=== PATIENT | male | born 1975 | race Two or more races ===

== ENCOUNTER 2025-06-17 08:41 | Inpatient (IN) | payer MEDICAID ==
[~2025-06-17] VITALS: Ht 180.3 cm; Wt 83.5 kg
--- NOTE | 2025-06-17 09:27 | ED.PDOC ---
History of Present Illness HPI Comments Patient is a 50-year-old male with past medical history of CVA/TIA? Four years ago without any residual deficits, hypertension, dyslipidemia, diabetes who comes in due to headache. According to the patient, he has been experiencing headache for the last 2 weeks, 7/10 intensity, constant and associated with i ntermittent blurry vision. Notes he had a similar headache before his stroke 4 years ago which is what prompted this visit to the ER. On review of systems patient is complaining of shortness of breaths, headache. Past medical history: CVA/TIA? Four years ago without any residual deficits, hypertension, dyslipidemia, diabetes Past surgical history: Denies Home medications: Losartan, aspirin, ibuprofen PRN Social & Personal history: Denies smoking, alcohol, drugs. Lives at home with family. Allergies: Denies Patient seen and examined at bedside. Patient is alert and oriented to time, place person and responding to all questions. Eyes: No Pain, Vision change, No Conjunctivae inflammation, No Eyelid inflammation, No Other, No Redness ENT: No Ear pain, No Ear discharge, No Nose pain, No Nose discharge, No Nose congestion, No Mouth pain, No Mouth swelling, No Throat pain, No Throat swelling, No Other Cardiovascular: No Chest Pain, No Palpitations, No Orthopnea, No Paroxysmal No Dyspnea, No Edema, No Lt Headedness, No Other Respiratory: No Cough, No Dry, Shortness of breath, No SOB with exertion, No Wheezing, No Hemoptysis, No Pleuritic Pain, No Sputum, No Other Gastrointestinal: No Nausea, No Vomiting, No Abdominal Pain, No Diarrhea, No Constipation, No Melena, No Hematochezia, No Other Genitourinary: No Dysuria, No Frequency, No Incontinence, No Hematuria, No Retention, No Other Musculoskeletal: No other, No neck pain, No shoulder pain, No arm pain, No back pain, No hand pain, No leg pain, No foot pain Skin: No Rash, No Lesions, No Jaundice, No Bruising, No Other Chief Complaint: Headache Time Seen by MD: 09:00 Primary Care Provider: NONE Allergies: Coded Allergies: NO KNOWN ALLERGIES (Unverified , 06/17/25) Information Source: Patient Mode of Arrival: Ambulatory Severity: Moderate Timing: Weeks Prehospital treatment: Pain Meds Past Medical History PAST MEDICAL HISTORY: Denies Surgical History: Denies all surgeries Family History Family History: No family hx of Cancer Social History Smoker: Non-Smoker Alcohol: Denies ETOH Use Drugs: Denies Drug Use Lives In: Home Physical Exam General Appearance: No Apparent Distress HEENT: Normal ENT Inspection, PERRL/EOMI Neck: Full Range of Motion, Non-Tender, Normal, Normal Inspection Respiratory: Chest Non-Tender, Lungs Clear, No Accessory Muscle Use, No Respiratory Distress, Normal Breath Sounds Cardiovascular: No Edema, No Murmur, Regular Rate/Rhythm Breast Exam: Deferred Gastrointestinal: Non Tender, No Pulsatile Mass, Normal Bowel Sounds Genitalia: Deferred Pelvic: Deferred Rectal: Rectal Exam not done Extremities: No calf tenderness, Normal capillary refill, Normal inspection, Normal range of motion, Non-tender, No pedal edema Neurologic: Alert, bending frame operator II-XII nml as Tested, Headache, No Motor Deficits, Normal Affect, Normal Mood, No Sensory Deficits Cerebellar Function: Normal Reflexes: Normal Skin: Dry, None, Normal Color, Warm Peripheral Pulses: 2+ dorsalis pedis (R), 2+ dorsalis pedis (L) Lymphatic: NOT DONE Was a procedure done? Was a procedure done?: No Differential Dx Considerations may include: Hypertensive urgency Hypertensive emergency Medication overuse headache TIA X-Ray, Labs, Meds, VS Vital Signs Date Time Temp Pulse Resp B/P (MAP) Pulse Ox O2 Delivery O2 Flow Rate FiO2 06/17/25 10:13 98 Room Air* 0 21 06/17/25 09:59 98.1 64 17 155/113 (127) 95 98.1 06/17/25 08:42 98.3 65 16 184/107 95 98.3 Lab Test 06/17/25 10:12 06/17/25 09:36 Range/Units Troponin I High Sensitivity Pending 5 </=54 ng/L White Blood Count 6.5 4.4-10.8 10^3/uL Red Blood Count 5.34 4.5-5.90 10^6/uL Hemoglobin 16.5 13.5-17.5 g/dL Hematocrit 48.3 41.0-53.0 % Mean Corpuscular Volume 90.5 80.0-100.0 fL Mean Corpuscular Hemoglobin 30.8 28.0-32.0 pg Mean Corpuscular Hemoglobin Concent 34.0 32.0-36.0 g/dL Red Cell Distribution Width 13.5 11.8-14.3 % Platelet Count 184 140-450 10^3/uL Mean Platelet Volume 8.5 6.9-10.8 fL Neutrophils (%) (Auto) 58.5 37.0-80.0 % Lymphocytes (%) (Auto) 33.1 10.0-50.0 % Monocytes (%) (Auto) 6.3 0.0-12.0 % Eosinophils (%) (Auto) 1.6 0.0-7.0 % Basophils (%) (Auto) 0.5 0.0-2.0 % Neutrophils # (Auto) 3.8 1.6-8.6 10 ^3/uL Lymphocytes # (Auto) 2.2 0.4-5.4 10 ^3/uL Monocytes # (Auto) 0.4 0-1.3 10 ^3/uL Eosinophils # (Auto) 0.1 0-0.8 10 ^3/uL Basophils # (Auto) 0 0-0.2 10 ^3/uL Nucleated Red Blood Cells 0.1 % Sodium Level 142 136-145 mmol/L Potassium Level 4.5 3.5-5.1 mmol/L Chloride Level 105 98-107 mmol/L Carbon Dioxide Level 29 20-31 mmol/L Anion Gap 8 5-15 Blood Urea Nitrogen 10 9-23 mg/dL Creatinine 0.93 0.700-1.30 mg/dL Glomerular Filtration Rate Calc 99 >90 mL/min BUN/Creatinine Ratio 10.8 10.0-20.0 Serum Glucose 93 74-106 mg/dL Calcium Level 9.9 8.7-10.4 mg/dL Time of 1ST Reevaluation: 10:15 Reevaluation 1ST: Unchanged Patient Education/Counseling: Diagnosis, Treatment, Prognosis, Need For Follow Up Family Education/Counseling: No Family Present SEPSIS Sepsis Screen Date sepsis recognized/suspect: Jun 17, 2025 Time Sepsis recognized/suspect: 08 Recent Procedure: No On Antibiotic Therapy: No Respiratory Rate >20: No Heart Rate >90: No Temp<36 C (96.8 F) or >38.3 C: No SBP <90 or MAP <65 mmHG: No New Acute Mental Status Change: No Is the patient on CPAP, BIPAP,: No Physician Orders Head Without Contrast (06/17/25 09:18) Electrocardigram (06/17/25 09:18) Troponin-I Hs (06/17/25 10:18) Troponin-I Hs (06/17/25 12:18) Chest Two Views Routine (06/17/25 09:18) Vital Signs Date Time Temp Pulse Resp B/P (MAP) Pulse Ox O2 Delivery O2 Flow Rate FiO2 06/17/25 10:13 98 Room Air* 0 21 06/17/25 09:59 98.1 64 17 155/113 (127) 95 98.1 06/17/25 08:42 98.3 65 16 184/107 95 98.3 Laboratory Tests Test 06/17/25 09:36 White Blood Count 6.5 10^3/uL (4.4-10.8) Departure 1 Departure Time of Disposition: 10:25 Impression: Primary Impression: Hypertensive emergency Additional Impression: Vision blurred Disposition: ADMITTED INPATIENT Admit to: Med Surg Condition: Guarded Comments Patient noted to have an extensive old infarct on head CT, together with accelerated hypertension and persistent headache, patient will benefit from inpatient hospitalization for further evaluation and management. Patient was given IV hydralazine 10 mg once in the ER with some improvement. Critical Care Note Critical Care Time?: No Stability Stability form required: LYSSA Rose RESIDENT Jun 17, 2025 09:27
[2025-06-17] MEDS: hydrALAZINE HCL 20 MG/ML VL IV ONE (09:30)
[2025-06-17 09:45] LABS: Hematocrit 48.3 % (41.0-53.0); Hemoglobin 16.5 g/dL (13.5-17.5); Mean Corpuscular Hemoglobin 30.8 pg (28.0-32.0); Mean Corpuscular Volume 90.5 fL (80.0-100.0); Nucleated Red Blood Cells % 0.1 %
[2025-06-17 09:52] LABS: Chloride 105 mmol/L (98-107); Potassium 4.5 mmol/L (3.5-5.1); Sodium 142 mmol/L (136-145)
--- NOTE | 2025-06-17 09:52 | DVH ---
EXAM: XY CHEST TWO VIEWS ROUTINE HISTORY: son, htn urgency vs emergency COMPARISON: None TECHNIQUE: Frontal and lateral views of the chest were performed. FINDINGS: There is interstitial scarring in the right mid to lower lung and left lung base. No other infiltrates, pneumothorax, pulmonary edema, or pleural effusions. There are calcified granulomas in both lungs. The lungs are hyperexpanded with flattening of the diaphragm on the lateral film. The heart is not enlarged. There are multiple old bilateral rib fractures. There is thoracic degenerative disc disease. IMPRESSION: 1. No acute intrathoracic process. 2. Scarring in the right mid to lower lung and left lung base. 3. Pulmonary hyperexpansion which may indicate Emphysema.
[2025-06-17 09:53] LABS: Anion Gap 8 (5-15); Calcium 9.9 mg/dL (8.7-10.4); Carbon Dioxide 29 mmol/L (20-31)
[2025-06-17 09:58] LABS: BUN/Creatinine Ratio 10.8 (10.0-20.0); Blood Urea Nitrogen 10 mg/dL (9-23); Glucose 93 mg/dL (74-106)
--- NOTE | 2025-06-17 09:58 | DVH ---
CLINICAL HISTORY: Hypertensive urgency versus emergency, headache TECHNIQUE: Helical scanning was performed of the head from the skull base to the vertex. Multiplanar reconstructions were performed. This exam was performed according to our departmental dose optimization program. Up-to-date CT equipment and radiation dose reduction techniques are utilized as appropriate. CTDI 55 DLP 991 COMPARISON: None FINDINGS: There is no evidence for acute intracranial hemorrhage, acute ischemic changes, mass, mass effect, or extra-axial fluid collection. There is no hydrocephalus or midline shift. There is no effacement of the cerebral sulci and basal subarachnoid cisterns. The kent-white matter differentiation is well maintained. There is a small to moderate Old Left occipital and posteromedial temporal lobe infarct. There is a moderate old left cerebellar infarct. There is a small old right parietal lobe infarct. The imaged paranasal sinuses demonstrates a nearly completely opacified left frontal sinus. IMPRESSION: No acute intracranial abnormality seen. Nearly completely opacified left frontal sinus. Old right parietal, left occipital temporal, and left cerebellar infarcts.
--- NOTE | 2025-06-17 11:13 | DVHHP2 ---
History of Present Illness History of Present Illness This is a 48-year-old male with past medical history of ischemic stroke four years ago, hypertension, dyslipidemia, and diabetes. He reports two weeks of headaches that worsened earlier today. The pain was generalized but more prominent in the parietal and occipital regions, with an intensity of 7/10 at arrival, now resolved. He was taking losartan, aspirin, and ibuprofen at home. At presentation, his blood pressure was 184/107, improving to 147/94 after treatment in the ED. A non-contrast CT head showed chronic infarctions in the right parietal, left occipital, temporal, and left cerebral regions without acute intracranial abnormality. He denies associated neurological deficits. He will be admitted for management of hypertensive emergency and observation given prior cerebrovascular disease. Later of my assessment: patient had an episode of hypotension PMHx Hypertension, dyslipidemia, diabetes, ischemic stroke (4 years ago). PSHx None reported. Social History Denies smoking, alcohol, or recreational drug use. Lives independently. ROS Negative except as described in HPI. No visual changes, no weakness, no sensory changes, no chest pain, no dyspnea, no nausea, no vomiting. Review of Systems Allergies: Coded Allergies: NO KNOWN ALLERGIES (Unverified , 06/17/25) Medications Current Medications Medications Dose Ordered Sig/Smith Route Start Time Stop Time Status Last Admin Dose Admin Acetaminophen 650 mg Q6HP PRN PO 06/17/25 11:15 UNV Enoxaparin Sodium 40 mg DAILY SC 06/18/25 10:00 UNV Losartan Potassium 50 mg DAILY PO 06/17/25 11:15 UNV Exam Vital Signs Vital Signs Date Time Temp Pulse Resp B/P (MAP) Pulse Ox O2 Delivery O2 Flow Rate FiO2 06/17/25 10:27 78 17 147/94 (111) 95 06/17/25 10:13 Room Air* 0 21 06/17/25 09:59 98.1 98.1 Exam Afebrile, hemodynamically improved. General: Alert, in no distress. Neuro: Normal exam, no focal deficits. Cranial nerves intact. Cardiac: Regular rate and rhythm. Lungs: Clear to auscultation bilaterally. Abdomen: Soft, non-distended, non-tender. Extremities: No edema. Skin: Warm and dry. Labs/Xrays Labs Test 06/17/25 10:12 06/17/25 09:36 Range/Units Troponin I High Sensitivity 8 </=54 ng/L White Blood Count 6.5 4.4-10.8 10^3/uL Red Blood Count 5.34 4.5-5.90 10^6/uL Hemoglobin 16.5 13.5-17.5 g/dL Hematocrit 48.3 41.0-53.0 % Mean Corpuscular Volume 90.5 80.0-100.0 fL Mean Corpuscular Hemoglobin 30.8 28.0-32.0 pg Mean Corpuscular Hemoglobin Concent 34.0 32.0-36.0 g/dL Red Cell Distribution Width 13.5 11.8-14.3 % Platelet Count 184 140-450 10^3/uL Mean Platelet Volume 8.5 6.9-10.8 fL Neutrophils (%) (Auto) 58.5 37.0-80.0 % Lymphocytes (%) (Auto) 33.1 10.0-50.0 % Monocytes (%) (Auto) 6.3 0.0-12.0 % Eosinophils (%) (Auto) 1.6 0.0-7.0 % Basophils (%) (Auto) 0.5 0.0-2.0 % Neutrophils # (Auto) 3.8 1.6-8.6 10 ^3/uL Lymphocytes # (Auto) 2.2 0.4-5.4 10 ^3/uL Monocytes # (Auto) 0.4 0-1.3 10 ^3/uL Eosinophils # (Auto) 0.1 0-0.8 10 ^3/uL Basophils # (Auto) 0 0-0.2 10 ^3/uL Nucleated Red Blood Cells 0.1 % Sodium Level 142 136-145 mmol/L Potassium Level 4.5 3.5-5.1 mmol/L Chloride Level 105 98-107 mmol/L Carbon Dioxide Level 29 20-31 mmol/L Anion Gap 8 5-15 Blood Urea Nitrogen 10 9-23 mg/dL Creatinine 0.93 0.700-1.30 mg/dL Glomerular Filtration Rate Calc 99 >90 mL/min BUN/Creatinine Ratio 10.8 10.0-20.0 Serum Glucose 93 74-106 mg/dL Calcium Level 9.9 8.7-10.4 mg/dL SEPSIS Sepsis Screen Date sepsis recognized/suspect: Jun 17, 2025 Time Sepsis recognized/suspect: 0844 Recent Procedure: No On Antibiotic Therapy: No Respiratory Rate >20: No Heart Rate >90: No Temp<36 C (96.8 F) or >38.3 C: No SBP <90 or MAP <65 mmHG: No New Acute Mental Status Change: No Is the patient on CPAP, BIPAP,: No Physician Orders Head Without Contrast (06/17/25 09:18) Electrocardigram (06/17/25 09:18) Chest Two Views Routine (06/17/25 09:18) Admit (06/17/25 11:05) Code Status (06/17/25 11:05) Vital Signs .PER UNIT PROTOCOL (06/17/25 11:05) Review Orders With Adm.Md (06/17/25 11:05) Consistent Carb(Ccho)Diabetes (06/17/25 Lunch) Acetaminophen Tablet (Tylenol Tablet) (06/17/25 11:15) Notify Md Of Changes From Base (06/17/25 11:05) Advance Directive (06/17/25 11:05) Urinalysis (06/17/25 11:05) Lipid Panel (06/17/25 11:05) Patient Condition (06/17/25 11:05) Allergies (06/17/25 11:05) Drug Screen (06/17/25 11:05) Hemoglobin A1c (06/17/25 11:05) Enoxaparin Sodium (Lovenox) (06/18/25 10:00) Oxygen By Nasal Cannula (06/17/25 11:05) Stat Ekg For Chest Pain (06/17/25 11:05) Notify Md Of Changes From Base (06/17/25 11:05) Policy Intern For 24 Hours (06/17/25 11:05) Emergency Dysrhythmia Protocol (06/17/25 11:05) Rhythm Strips Once Every Shift (06/17/25 11:05) Losartan Tablet (Cozaar Tablet) (06/17/25 11:15) Vital Signs Date Time Temp Pulse Resp B/P (MAP) Pulse Ox O2 Delivery O2 Flow Rate FiO2 06/17/25 10:27 78 17 147/94 (111) 95 06/17/25 10:13 98 Room Air* 0 21 06/17/25 09:59 98.1 64 17 155/113 (127) 95 98.1 06/17/25 09:30 153/111 06/17/25 08:42 98.3 65 16 184/107 95 98.3 Laboratory Tests Test 06/17/25 09:36 White Blood Count 6.5 10^3/uL (4.4-10.8) Medications Medications Dose Ordered Sig/Smith Route Start Time Stop Time Status Last Admin Dose Admin Hydralazine HCl 10 mg ONCE ONCE IV 06/17/25 09:30 06/17/25 09:49 DC 06/17/25 09:30 10 MG Assessment/Plan Assessment/Plan # Hypertensive emergency # Rule out acute stroke # History of ischemic stroke The patient presented with severe hypertension and headache, with CT showing chronic infarcts but no acute lesion. Blood pressure improved after hydralazine, and he is neurologically intact. Continue PO antihypertensive therapy as needed to maintain safe BP reduction, resume home losartan once stable, monitor on telemetry, and perform neurological checks. Optimize long-term control and reinforce medication adherence. Patient had an episode of hypotension after hydralazine: IV fluid are given now ECHO and MRI ordered Start aspirin and statin Chronic infarcts noted on CT. No acute changes and neurologically stable. # Hypertension Poorly controlled at home leading to current presentation. # Dyslipidemia Known history contributing to vascular disease. # Diabetes Known comorbidity and vascular risk factor, glucose stable on admission labs. Check A1c, continue hospital sliding-scale insulin if needed. Reinforce glycemic control for secondary stroke prevention. Case discussed with Dr Lujan Full code Plan discussed with: Patient, Other (rn) My Orders Orders - RACHEL OLIVER RESIDENT Procedure Category Date Status Time Admit ADMIT 06/17/25 Transmitted 11:05 Code Status CODE 06/17/25 Transmitted 11:05 Vital Signs LUBA 06/17/25 In Process 11:05 Review Orders With LUBA 06/17/25 In Process Adm. 11:05 Consistent DIET 06/17/25 Transmitted Carb(Ccho)Diabetes Lunch Acetaminophen Tablet PHA 06/17/25 Logged (Tylenol Tablet) 11:15 Notify Of Changes LUBA 06/17/25 In Process From Base 11:05 Advance Directive LUBA 06/17/25 In Process 11:05 Urinalysis LAB 06/17/25 Logged 11:05 Lipid Panel LAB 06/17/25 Logged 11:05 Patient Condition ORDERS 06/17/25 Transmitted 11:05 Allergies LUBA 06/17/25 In Process 11:05 Drug Screen LAB 06/17/25 Logged 11:05 Hemoglobin A1c LAB 06/17/25 Logged 11:05 Enoxaparin Sodium PHA 06/18/25 Logged (Lovenox) 10:00 Oxygen By Nasal RT 06/17/25 Transmitted Cannula 11:05 Stat Ekg For Chest [facility] 06/17/25 In Process Pain 11:05 Notify Of Changes [facility] 06/17/25 In Process From Base 11:05 Policy Intern For [facility] 06/17/25 In Process 24 Hours 11:05 Emergency Dysrhythmia [facility] 06/17/25 In Process Protocol 11:05 Rhythm Strips Once [facility] 06/17/25 In Process Every Shift 11:05 Losartan Tablet [facility] 06/17/25 Logged (Cozaar Tablet) 11:15 Date of Service: Jun 17, 2025 Billing Provider: LISA LUJAN MD Common Visit Codes: 42629-[id number] INP/OBS CARE (HIGH) Secondary Visit Codes: [id number] CARE PLAN 30 MINUTES RACHEL OLIVER RESIDENT Jun 17, 2025 11:13
[2025-06-17] MEDS: LOSARTAN POTASSIUM 50 MG TAB PO SCH (11:15)
[2025-06-17] MEDS ORDERED: SODIUM CHLORIDE 0.9% 1,000 ML IV ONE (11:45)
[2025-06-17] MEDS: SODIUM CHLORIDE 0.9% 500 ML IV ONE (12:00)
[2025-06-17 12:04] LABS: Triglycerides 223 mg/dL (< 150)
[2025-06-17 12:07] LABS: Cholesterol 298 mg/dL (< 200); HDL Cholesterol 60 mg/dL (40-59)
[2025-06-17 12:36] VITALS: PULSE 85
[2025-06-17] MEDS: ACETAMINOPHEN 325 MG TAB PO PRN (12:52)
--- NOTE | 2025-06-17 13:42 | DVH ---
PROCEDURE: MRI OF THE BRAIN WITHOUT CONTRAST. CLINICAL INDICATION: rule out stroke TECHNIQUE: Multiplanar, multi sequence MRI of the brain was performed without intravenous contrast. COMPARISON: CT HEAD WITHOUT CONTRAST on DOS: 06/17/25 FINDINGS: There is encephalomalacia in the left cerebellum, left parietal and left occipital lobe. The signal abnormality of the brain parenchyma is otherwise within normal limits. There are no areas of restricted diffusion to suggest acute infarct. No evidence of space occupying mass lesion, extra-axial collect ions or hemorrhage is noted. The sulci and basal cisterns are not effaced. Ex vacuo dilatation of the left lateral ventricle due to old insult. No hydrocephalus. There is no signal abnormality in the posterior fossa to suggest an acute process. Mucosal thickening in the left frontal sinus. Mastoid air cells are clear. The orbits and nasopharynx are intact. The osseous structures are intact. The vessels of the skull base demonstrate signal void consistent with patency. IMPRESSION: 1. No acute intracranial abnormality. 2. No acute infarct. 3. Old infarcts in the left cerebellum, left parietal and left occipital lobe.
[2025-06-17 14:54] VITALS: BP 145/86; PULSE 83; RESP 17; TEMP 98.1; O2SAT 94
[2025-06-17] MEDS: ATORVASTATIN 20 MG TAB PO ONE (15:19)
[2025-06-18] MEDS ORDERED: ENOXAPARIN SOD 40 MG/0.4 ML SYRINGE SC SCH (10:00)
== END 2025-06-17 16:15 | disposition left against medical advice (07) | DRG 199 ==
LOC: ER 08:41 → OVERFLOW 11:05 → UNDOADMIN 11:05 → OVERFLOW 11:49
PROVIDERS: ATTEND Emergency Medicine
DX: I16.1 Hypertensive emergency (principal); E11.9 Type 2 diabetes mellitus without complications; I10 Essential (primary) hypertension; E78.5 Hyperlipidemia, unspecified; Z86.73 Personal history of transient ischemic attack (TIA), and cerebral infarction without residual deficits; Z53.29 Procedure and treatment not carried out because of patient's decision for other reasons
CPT/HCPCS: 36415; 70450; 70551; 71046; 80048; 80061; 83036; 84484; 85025; 96361; 96374; G0378